=== PATIENT | male | born 1940 | race Two or more races ===

== ENCOUNTER 2017-06-05 10:55 | Outpatient (CLI) | payer OTHER ==
[~2017-06-05 10:55] MED LIST: CARVEDILOL3.125 MG; COREG CR10 MG PO; DEPO-MEDRO40 MG/1 ML IJ; HYZAAR 100-12.1 EACH; MONOPRIL HCT 101 TAB PO
== END 2017-06-05 15:44 | disposition home or self-care (01) ==
LOC: RAD 10:55
DX: M79.642 Pain in left hand (principal)